=== PATIENT | male | born 1950 | race Caucasian/White ===

== ENCOUNTER 2025-01-07 16:46 | Emergency (ER) | payer MEDICARE, OTHER, SELFPAY ==
[2025-01-07 16:49] VITALS: BP 144/82
[2025-01-07 17:23] LABS: Hematocrit 47.2 % (39.0-52.0); Hemoglobin 16.1 g/dL (13.0-18.0); Mean Corp Hgb Conc. 34.1 g/dL (33.0-37.0); Mean Corpuscular Volume 85.2 fL (80.0-94.0); Nucleated Red Blood Cells % 0 % (-); Platelet Count 235 10^3/uL (130-400); Red Cell Dist. Width 13.4 % (11.5-14.5)
[2025-01-07 17:40] LABS: ALT (SGPT) 41 U/L (0-50); AST (SGOT) 27 U/L (17-59); Albumin 4.3 g/dl (3.5-5.0); Alkaline Phosphatase 60 U/L (38-126); Blood Urea Nitrogen 19 mg/dl (9-20); Calcium 10.2 mg/dl (8.4-10.2); Carbon Dioxide 28 mmol/L (22-30); Chloride 108 mmol/L (98-107); Glucose 164 mg/dl (70-99); Potassium 4.1 mmol/L (3.5-5.1); Sodium 141 mmol/L (135-145); Total Protein 6.6 g/dl (6.3-8.2); eGFR > 60.00
--- NOTE | 2025-01-07 19:00 | EDRN ---
Pt and states pt would like to leave. THONY and notified, THONY Sotelo spoke to pt and forms completed. pt ambulated with steady gait to leave department
--- NOTE | 2025-01-07 23:55 | ED.GENMED ---
History of Present Illness
General
Chief Complaint: Head Injury
Source: patient
Exam Limitations: none
Time Seen by Provider: 01/07/25 19:03
Nursing documentation reviewed up to this point in time: agreed with
History of Present Illness
History of Present Illness:
Patient is a 74-year-old male who presents to the emergency department alongside daughter for evaluation of persistent headache following head trauma 2 weeks ago. Patient states that she was unaware of this at the time but her father reports an
episode of syncope on 12/24 while he was in the garage. At that time he apparently fell and struck his head on the garage floor. He did not seek medical attention at that time. He is unsure what led to his syncopal event however denies any preceding
chest pain or shortness of breath. Apparently, this has happened in the past (many years ago) and was thought to be due to hypoglycemia.
He describes intermittent headaches and lightheadedness since fall. He denies any vomiting, visual changes, neck or back pain, chest pain or shortness of breath. He denies any loss of bowel/bladder incontinence or numbness/tingling or weakness in
extremities. No changes in mental status, difficulties with speech or ambulating.
He sustained a minor laceration to his right brow during fall which fortunately has been healing well. He has not had any fevers, persistent bleeding, purulent drainage from wound.
Patient takes a baby aspirin. Vaccinations up-to-date.
Past History
Past History
ED Past Medical History: CAD, HTN, Hypercholesterolemia and Hypothyroidism
ED Past Surgical History: Cardiac
Social History
Tobacco: Non-smoker
Alcohol: Occasional
Personal:
Living: with family
Family History
Family History: Negative Diabetes or CAD
Review of Systems
Review of Systems
Allergies reviewed?: Yes
All Other Systems: ROS reviewed and negative except as documented in HPI and ROS
Phy Exam
Physical Exam
Physical Exam:
Vitals: Hypertensive, otherwise vital signs stable. Afebrile
General: Patient is well appearing, no acute distress. Nontoxic appearing
Skin: Warm and dry, no rashes or lesions. Healed laceration to right brow. No surrounding erythema or tenderness.
Head: Normocephalic, atraumatic
Eyes: Sclera nonicteric. Pupils equal round and reactive to light bilaterally. EOMs intact. No nystagmus.
Throat: Protecting airway
Neck: Normal ROM, no cervical spine tenderness, no meningismus
Cardiac: Regular rate and rhythm, no murmurs. No reproducible chest wall tenderness
Pulm: Normal respiratory effort, no wheezes, rales, rhonchi heard on exam
Abdomen: Abdomen soft and nontender.
Extremities: No evidence of cyanosis or edema. Bilateral upper and lower extremities atraumatic and nontender with full range of motion. Distal pulses intact.
Neuro: AAOx3. CN II-XII grossly intact. Fluid speech and steady gait. Strength 5/5 in bilateral upper and lower extremities intact with normal sensation. No focal neurologic deficits.
Psychiatric: Normal affect.
Course
Orders/Labs/Results
Orders:
Orders
01/07/25 16:54
Electrocardiogram (*1) Urgent
Reason for Study: Vertigo / Dizzy
CT Head W/o Iv Contrast Urgent
Comment:
Reason For Exam: fall on 12/24, continued headache and dizzy
EKG- Treatment ONCE
01/07/25 17:05
Complete Blood Count/With Diff Urgent
Comprehensive Metabolic Panel Urgent
01/07/25 19:23
Orthostatic VS- Treatment ONCE
Abnormal Lab Results
01/07/25
17:05
Abs Immat Gran (auto) 0.1 H 10^3/uL
(0-0.05)
Absolute Monos (auto) 1.1 H 10^3/uL
(0.1-0.6)
Immature Gran % 0.9 H %
(0-0.5)
Monocytes % 11.4 H %
(1.7-9.3)
Chloride 108 H mmol/L
(98-107)
Glucose 164 H mg/dl
(70-99)
01/07/25 17:05
01/07/25 17:05
Vital Signs
Initial and Last Documented VS:
Initial Vital Signs
Temp Pulse Resp BP Pulse Ox
98.2 F 71 18 144/82 97
01/07/25 16:49 01/07/25 16:49 01/07/25 16:49 01/07/25 16:49 01/07/25 16:49
Last Documented Vital Signs
Temp Pulse Resp BP Pulse Ox
98.2 F 71 18 144/82 97
01/07/25 16:49 01/07/25 16:49 01/07/25 16:49 01/07/25 16:49 01/07/25 23:55
MDM/Problems Addressed
Differential Diagnosis Includes:
Not limited to: Intra cerebral hemorrhage, concussion, vasovagal syncope, orthostatic syncope, dehydration, hypoglycemia, cardiac arrhythmia, etc.
MDM/Problems Addressed:
74 year-old male presenting with persistent headache after unwitnessed syncopal event two weeks ago. No oral anticoagulation. He has lingering headache and mild lightheadedness however otherwise feels well. No chest pain, shortness of breath, other
neurologic symptoms. He did sustain a laceration to right brow during fall which has been healing well. No other associated injuries during fall. Vitals and exam as above.
CT scan head obtained prior to my evaluation without evidence of acute intracranial traumatic injuries.
Basic lab work unremarkable. EKG without evidence of acute ischemia or arrhythmia.
Ultimately � no evidence of acute intracranial traumatic injury. Suspect likely post-concussive symptoms. He did sustain a laceration to his right brow which appears to be healing well without any evidence of surrounding cellulitis. Unclear etiology
of syncopal event. He declines any further testing, including orthostatic vital signs, cardiac monitoring, etc. His vaccinations are up to date.
Will discharge home with supportive care instructions and strict return precautions. Advised follow up with primary care for further evaluation. Patient and patient�s daughter comfortable with plan.
Chronic conditions affecting care:
Hypertension
Acute Exacerbation and/or Progression of Chronic Illness:
Acutely hypertensive
*Radiology
Radiology exam reviewed: radiology read reviewed
*Pulse Oximetry
SaO2: 97
Oxygen Mode of Delivery: Room air
Patient hypoxic: no
*EKG
Interpreted by ED Provider?: Yes
EKG Intrepretation Date: 01/08/22
Interpretation: abnormal
Comparison EKG: changes noted
Heart Rate: 65
Rate: normal
Rhythm: sinus and PAC's
[place]: normal axis
Interval: normal QT interval
QRS Pattern: normal QRS
Ischemia: non-specific ST changes
*Camp Maintenance Supervisor Interpretation
Rate: Camp Maintenance Supervisor- N/A
*Critical Care Note
Total Time (30-74mins, 75-104mins- exclusive of procedures): Not Applicable
ED Attending Note
-
Portions of this chart may have been created with voice recognition software.� Occasional wrong word or��sound alike� substitutions may have occurred due to the inherent limitations of voice recognition software.
Discharge Plan
Departure
Patient Disposition: Home (Routine Discharge)
Date of Disposition: 01/07/25
Time of Disposition: 19:43
Patient with high blood pressure during this ER visit?: Yes
Condition: Good
Discharge Problem:
Head injury, Syncope
Instructions: Concussion, Adult (DC), Head Injury in Adults (DC), BLOOD PRESSURE
Prescriptions:
No Action
aspirin 325 MG tablet,delayed release (DR/EC)
325 mg PO DAILY
simvastatin 20 MG tablet
20 mg PO QPM
thyroid (pork) [[place] Thyroid] 15 MG tablet
15 mg PO QPM
multivitamin with folic acid [Tab-A-Kyle] 1 TABLET tablet
1 tab PO QPM
Lotrel 5 mg/20 mg:
1 tab PO DAILY
atenolol 25 MG tablet
25 mg PO QPM
Activity Restrictions/Additional Instructions:
RETURN TO THE EMERGENCY DEPARTMENT WITH ANY SEVERE HEADACHE OR NECK PAIN, CHANGES IN MENTAL STATUS, VISUAL CHANGES, VOMITING, PERSISTENT DIZZINESS/LIGHTHEADEDNESS, ANY CHEST PAIN OR SHORTNESS OF BREATH, ADDITIONAL EPISODES OF FAINTING, WORSENING OF
CURRENT SYMPTOMS, OR ANY OTHER CONCERNS
- As discussed�your lab work showed no acute abnormalities in the emergency department. The CT scan of your head showed no acute traumatic injuries.
- You likely sustained a mild concussion. Please stay well-hydrated. Take Tylenol as needed for pain.
- I am unsure the exact cause of your syncopal event which led to your head injury. Please be sure to follow-up with your primary care and cardiology for further evaluation/management. Please continue to take all your medications as prescribed.
Monitor your symptoms closely and return to the emergency department with any acute worsening/new symptoms or any other concerns
Interventions
Interventions:
*Risk Screen - Suicide Last Done: 01/07/25 16:49
*General Assessment Last Done: 01/07/25 16:49
*Nursing Disposition Last Done: 01/07/25 20:50
Discharge Date and Time
Discharge Date/Time: 01/07/25 20:51
Print Language: [place]
== END 2025-01-07 20:51 | disposition home or self-care (01) ==
LOC: EMR 16:46
PROVIDERS: Emergency Medicine; EMERGENCY PHYSICIAN Emergency Medicine; FAMILY PHYSICIAN Internal Medicine
DX: S09.90XA Unspecified injury of head, initial encounter (principal); R55 Syncope and collapse; W19.XXXA Unspecified fall, initial encounter; E78.00 Pure hypercholesterolemia, unspecified; E03.9 Hypothyroidism, unspecified; I25.10 Atherosclerotic heart disease of native coronary artery without angina pectoris; I10 Essential (primary) hypertension
CPT/HCPCS: 99284; 70450; 80053; 85025; 93005

== ENCOUNTER → 2025-04-05 08:14 | Outpatient (REF) | payer MEDICARE, OTHER, SELFPAY | LOC: HWRCS 08:14 | PROVIDERS: ATTENDING PHYSICIAN Internal Medicine Cardiovascular Disease | DX: I25.10 Atherosclerotic heart disease of native coronary artery without angina pectoris (principal); R55 Syncope and collapse | CPT/HCPCS: 93306 ==